=== PATIENT | male | born 1940 | race Caucasian/White ===

== ENCOUNTER → 2021-12-10 | Outpatient (CLI) | payer MEDICARE ==
[~2021-12-10] MED LIST: AMLODIPINE BESY10 MG PO; ASPIRIN 325MG325 MG PO; CENTRUM SILVER1 EAC2 PO; CLONAZEPAM1 MG PO; DETROL LA4 MG PO; DILAUDID2 MG PO; ELIQUIS 2.5 MG2.5 MG PO; FLECTOR TOPICAL1 EA TD; IBUPROFEN600 MG PO; KLONOPIN TAB 00.5 MG PO; KLONOPIN1 MG PO; NEURONTIN 300300 MG PO; NORFLEX 100 MG100 MG PO; NORVASC 5 MG TAB5 MG PO; PRECOSE 50 MG T50 MG; PROSCAR5 MG PO; QUETIAPINE FUMA50 MG PO; RISPERDAL0.25 MG PO; SEROQUEL50 MG PO; SERTRALINE HCL100 MG PO; TRIMETHOPRIM100 MG PO; TYLENOL 325MG325 MG PO; VITAMIN B12 PO; Voltaren Gel 1 % TOP; ZOLOFT100 MG PO
== END ==
LOC: KOH-I 14:12
DX: M25.552 Pain in left hip (principal); M54.41 Lumbago with sciatica, right side
CPT/HCPCS: 72100; 73502